=== PATIENT | female | born 1995 | race Caucasian/White ===

== ENCOUNTER 2024-11-08 09:02 | Emergency (ER) | payer OTHER, SELFPAY ==
[2024-11-08 09:04] VITALS: BP 114/81
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
[2024-11-08] MEDS: TYLENOL 650 MG PO (09:43)
== END 2024-11-08 10:03 | disposition home or self-care (01) ==
LOC: EMR 09:02
PROVIDERS: EMERGENCY PHYSICIAN Emergency Medicine; FAMILY PHYSICIAN Registered Nurse
DX: R51.9 Headache, unspecified (principal); V89.2XXA Person injured in unspecified motor-vehicle accident, traffic, initial encounter; Y92.410 Unspecified street and highway as the place of occurrence of the external cause
CPT/HCPCS: 99284; 70450